=== PATIENT | male | born 1965 | race Caucasian/White ===

== ENCOUNTER 2020-06-30 11:56 | Emergency (ER) | payer OTHER, SELFPAY ==
--- NOTE | ~2020-06-30 | XR_ITS ---
EXAMINATION: XR CHEST CLINICAL INFORMATION: Palpitations COMPARISON: None TECHNIQUE: Frontal view of the chest was obtained. FINDINGS: The cardiac and mediastinal contours are normal. The lungs are clear. There is no pleural effusion or pneumothorax. Visualized bony structures are unremarkable. There may be degenerative changes of the spine. XR/XR chest 1V IMPRESSION: No evidence for acute disease in the chest.
[2020-06-30 12:11] VITALS: BP 172/91; PULSE 109; TEMP 37.3; O2SAT 96; BMI 39.9
--- NOTE | 2020-06-30 12:37 | ECG_ITS ---
Test Reason : TACHY Blood Pressure : / mmHG Vent. Rate : 109 BPM Atrial Rate : 109 BPM P-R Int : 160 ms QRS Dur : 084 ms QT Int : 370 ms P-R-T Axes : 037 -04 026 degrees QTc Int : 498 ms Sinus tachycardia Possible Left atrial enlargement Borderline ECG No previous ECGs available Referred By: Nela Scanlon Electronically Signed By:Reinaldo Kitchen
--- NOTE | 2020-06-30 12:39 | ED.ARRPALP ---
HPI - Arrhythmia/Palpitations General Chief Complaint: Arrhythmia/Palpitations Stated Complaint: hbp? Time Seen by Provider: 06/30/20 12:28 Source: patient Mode of arrival: ambulatory History of Present Illness HPI narrative: 55-year-old male with a past medical history of HTN, sinusitis, panic attacks presenting to the ED complaining of sudden onset palpitations while at work today. States checked his blood pressure which was elevated. Admits to similar symptoms with prior panic attacks which he is Rx Ativan but did not take today because he was at work. Admits to increase stressors, and generalized fatigue. States his father is in the hospital right now. Denies fever, chills, cough, shortness of breath, chest pain, LE edema, recent travel, nausea/vomiting MD complaint: heart racing and palpitations Related Data Previous Rx's Medication Instructions Recorded hydrochlorothiazide 12.5 mg tablet 12.5 mg PO QAM 90 Days #90 tab 03/07/20 loratadine 10 mg tablet 10 mg PO DAILY 30 Days #30 tab 06/20/20 lorazepam 0.5 mg tablet 0.5 mg PO DAILY PRN 7 Days #7 tab 06/20/20 azithromycin 250 mg tablet See Rx Instructions PO .COMPLEX 5 06/21/20 Days #6 tab Allergies Allergy/AdvReac Type Severity Reaction Status Date / Time amoxicillin [From AUGMENTIN] Allergy Unknown RASH Verified 06/20/20 15:48 clavulanic acid Allergy Unknown RASH Verified 06/20/20 15:48 [From AUGMENTIN] Review of Systems Review of Systems: Constitutional: No Weight loss, No Fever, No Chills, +Fatigue, No Malaise Cardiovascular: No Chest Pain, No SOB, No Edema, +Palpitations Respiratory: No Cough, No Sputum, No Dyspnea Gastrointestinal: No Nausea, No Vomiting, No Diarrhea, No Constipation, No Abdominal pain Genitourinary: No irregular bleeding, No Dysuria, No Urinary Frequency, No Hematuria Musculoskeletal: No joint pain, No Myalgias Skin: No Skin Lesions, No rash Neuro: No Weakness, No Headache Psych: + Anxiety/Panic Yes all other systems are reviewed and are negative [facility] Past Medical History Attestation statement: The following information was validated with the patient. Surgical History No pertinent past surgical history Social History Social History Alcohol intake: never Smoking Status: Former smoker Tobacco Type: Cigarette Advance Directives: No Advance Directives Information Provided: Yes Physical Exam Vital Signs: Vital Signs: Last Vital Signs Temp 99.2 F 06/30/20 12:11 Pulse 88 06/30/20 14:39 Resp 18 06/30/20 14:39 BP 116/73 06/30/20 14:39 Pulse Ox 96 06/30/20 12:11 Body Mass Index 39.9 Const: Other: tearful General: cooperative, healthy appearing and anxious Orientation/consciousness: patient oriented x3 Limitations: no limitations HENMT: Head: Yes normal to inspection Ears: hearing grossly normal bilaterally General nose exam: Normal external nose present Face and sinus: Yes normal facial exam Eyes: General: appearance normal, both eyes and all related structures EOM: EOMs intact bilaterally Neck: Neck: Yes normal visual inspection Resp: Effort & Inspection: normal respiratory effort Auscultation: clear to auscultation bilaterally, no rales, no rhonchi and no wheezes Cardio: Rate: regular rate and tachycardic Heart sounds: S1 normal heart sound present and S2 normal heart sound present GI: Inspection: Yes normal to inspection Palpation (GI): Soft to palpation, nontender, no guarding and not rigid Skin: Rashes: no rashes Wounds: no wounds Neuro: General: patient oriented x3 Gait exam (Neuro): Normal gait present Extrem: General: Yes normal to inspection and Yes no pedal edema Psych: Affect: Sad affect present Course Course Course Narrative: -labs unremakrable including troponin and TSH. -COVID 19 negative XR chest 1V IMPRESSION: No evidence for acute disease in the chest. --1414-- on re-evaluation pt reports sx improvement, will obtain repeat troponin -1634-- repeat troponin negative. results discussed with patiebt including worrisome signs and symptoms and strict return precautions. Patient states he has follow-up with his PCP next week. He verbalized understanding feel safe for discharge home MDM - Arrhythmia/Palpitations MDM Narrative Medical decision making narrative: 55-year-old male with a past medical history of HTN, sinusitis, panic attacks presenting to the ED complaining of sudden onset palpitations while at work today. Admits to increase stressors, and generalized fatigue. On exam HTNsive, tachycardiac, anxious, tearful, NAD, lungs CTA. Concern for anxiety/panic attack. Unlikely ACS or PE. Unlikely dissection, sepsis or infectious etiology Plan: EKG, Labs, CXR, COVID testing Differential Diagnosis Differential diagnosis: Likely palpitations, anxiety and sinus tachycardia; Unlikely artial fibrillation and artial flutter Medical Records Attestation: I reviewed the patient's medical records. Lab Data Attestation: I reviewed the patient's lab results. Result diagrams: 06/30/20 12:42 06/30/20 12:42 Labs: Lab Results 06/30/20 06/30/20 06/30/20 Range/Units 12:42 12:42 12:42 WBC 8.7 (4.8-10.8) X10*3/uL RBC 5.07 (4.60-5.80) X10*6/uL Hgb 16.3 (14.0-18.0) g/dl Hct 47.3 (42-52) % MCV 93.3 (80-98) fL MCH 32.1 (27.0-33.0) pg MCHC 34.5 (31.0-36.0) g/dl RDW 12.2 (11.0-16.0) % Plt Count 295 (160-400) X10*3/uL MPV 9.2 L (9.4-12.4) fL Immature Gran % (Auto) 0.1 (0.0-0.4) % Neut % (Auto) 62.4 (45-73) % Lymph % (Auto) 26.4 (20-40) % [place] % (Auto) 9.2 (2-11) % Eos % (Auto) 1.2 (0-4) % Baso % (Auto) 0.7 (0-2) % Lymph # (Auto) 2.3 (1.2-4.9) X10*3/uL [place] # (Auto) 0.8 (0.1-1.2) X10*3/uL Eos # (Auto) 0.1 (0.0-0.4) X10*3/uL Baso # (Auto) 0.1 (0.0-0.2) X10*3/uL Abs Immat Gran (auto) 0.01 (0.00-0.03) X10*3/uL Absolute Neuts (auto) 5.4 (2.0-8.3) X10*3/uL Absolute Nucleated RBC 0.000 (0.0-0.012) X10*3/uL Nucleated RBC % (auto) 0.0 (0.0-0.2) /100WBC Hold Blue Top SEE NOTE Sodium 139 (135-145) mmol/L Potassium 4.0 (3.3-5.1) mmol/L Chloride 102 (96-108) mmol/L Carbon Dioxide 26 (22-29) mmol/L Anion Gap 15 (12-20) BUN 15 (9-16) mg/dL Creatinine 0.85 (0.5-1.4) mg/dL Estim Creat Clear Calc 134.8 Estimated GFR > 60 Random Glucose 107 (60-115) mg/dL Calcium 9.9 (8.4-10.2) mg/dL Magnesium 2.2 (1.6-2.6) mg/dL Total Bilirubin 0.7 (0.0-1.0) mg/dL Direct Bilirubin 0.2 (0.0-0.5) mg/dL AST 23 (5-37) U/L ALT 41 H (0-40) U/L Alkaline Phosphatase 63 (39-117) U/L Troponin I High Sens (<3.5-35.0) ng/L Total Protein 8.4 H (6.5-8.0) g/dL Albumin 4.8 (3.5-5.0) g/dL TSH 1.19 (0.32-4.0) uIU/mL COVID-19 (KEEGAN) (Negative) COVID-19 Clin Com 06/30/20 06/30/20 06/30/20 Range/Units 12:42 12:42 15:42 WBC (4.8-10.8) X10*3/uL RBC (4.60-5.80) X10*6/uL Hgb (14.0-18.0) g/dl Hct (42-52) % MCV (80-98) fL MCH (27.0-33.0) pg MCHC (31.0-36.0) g/dl RDW (11.0-16.0) % Plt Count (160-400) X10*3/uL MPV (9.4-12.4) fL Immature Gran % (Auto) (0.0-0.4) % Neut % (Auto) (45-73) % Lymph % (Auto) (20-40) % [place] % (Auto) (2-11) % Eos % (Auto) (0-4) % Baso % (Auto) (0-2) % Lymph # (Auto) (1.2-4.9) X10*3/uL [place] # (Auto) (0.1-1.2) X10*3/uL Eos # (Auto) (0.0-0.4) X10*3/uL Baso # (Auto) (0.0-0.2) X10*3/uL Abs Immat Gran (auto) (0.00-0.03) X10*3/uL Absolute Neuts (auto) (2.0-8.3) X10*3/uL Absolute Nucleated RBC (0.0-0.012) X10*3/uL Nucleated RBC % (auto) (0.0-0.2) /100WBC Hold Blue Top Sodium (135-145) mmol/L Potassium (3.3-5.1) mmol/L Chloride (96-108) mmol/L Carbon Dioxide (22-29) mmol/L Anion Gap (12-20) BUN (9-16) mg/dL Creatinine (0.5-1.4) mg/dL Estim Creat Clear Calc Estimated GFR Random Glucose (60-115) mg/dL Calcium (8.4-10.2) mg/dL Magnesium (1.6-2.6) mg/dL Total Bilirubin (0.0-1.0) mg/dL Direct Bilirubin (0.0-0.5) mg/dL AST (5-37) U/L ALT (0-40) U/L Alkaline Phosphatase (39-117) U/L Troponin I High Sens < 3.5 < 3.5 (<3.5-35.0) ng/L Total Protein (6.5-8.0) g/dL Albumin (3.5-5.0) g/dL TSH (0.32-4.0) uIU/mL COVID-19 (KEEGAN) Negative (Negative) COVID-19 Clin Com See Note ECG Data Attestation: I personally reviewed and interpreted this ECG as follows: ECG interpretation date: 06/30/20 ECG interpretation time: 12:24 Interpretation: sinus tachycardia, rate 109, QTc 498. No STEMI. Nonischemic Discharge Plan Discharge Clinical Impression: Anxiety Patient Disposition: Home, Self-Care Instructions: Anxiety (ED) Additional Instructions: Your blood work, chest x-ray, and COVID-19 were reassuring today in the ED It is important that he follow up with her primary care doctor as scheduled next week Continue taking home prescribed medications If her symptoms persist or worsen, become constant, you develop any chest pain, shortness of breath, or fever return to the ED Prescriptions: No Action hydrochlorothiazide 12.5 mg tablet 12.5 mg PO QAM 90 Days Qty: 90 RF: 1 loratadine 10 mg tablet 10 mg PO DAILY 30 Days Qty: 30 RF: 0 lorazepam 0.5 mg tablet 0.5 mg PO DAILY PRN (Reason: anxiety) 7 Days Qty: 7 RF: 0 azithromycin 250 mg tablet See Rx Instructions PO .COMPLEX 5 Days Qty: 6 RF: 0 Referrals: Hernán Perkins PA-C [Primary Care Provider] - 5 days
[2020-06-30 12:49] LABS: MANUAL DIFF FLAG NO
[2020-06-30] MEDS: 0.9 % Sodium Chloride 1,000 ML 999 ML IVCONT (12:51)
[2020-06-30] MEDS: LORazepam 1 MG TABLET PO (12:51)
[2020-06-30] MEDS: Acetaminophen 325 MG TABLET 650 MG PO (12:51)
[2020-06-30 12:53] LABS: Basophils Absolute Auto 0.1 X10*3/uL (0.0-0.2); Basophils Percent Auto 0.7 % (0-2); Eosinophils Absolute Auto 0.1 X10*3/uL (0.0-0.4); Eosinophils Percent Auto 1.2 % (0-4); Hematocrit 47.3 % (42-52); Hemoglobin 16.3 g/dl (14.0-18.0); Imm Gran Abs Auto 0.01 X10*3/uL (0.00-0.03); Imm Gran Pct Auto 0.1 % (0.0-0.4); Lymphocytes Absolute Auto 2.3 X10*3/uL (1.2-4.9); Lymphocytes Percent Auto 26.4 % (20-40); Mean Corpuscular HGB Conc 34.5 g/dl (31.0-36.0); Mean Corpuscular Hemoglobin 32.1 pg (27.0-33.0); Mean Corpuscular Volume 93.3 fL (80-98); Mean Platelet Volume 9.2 fL (9.4-12.4); Monocytes Absolute Auto 0.8 X10*3/uL (0.1-1.2); Monocytes Percent Auto 9.2 % (2-11); Neutrophils Absolute Auto 5.4 X10*3/uL (2.0-8.3); Neutrophils Percent Auto 62.4 % (45-73); Platelet Count 295 X10*3/uL (160-400); Red Blood Count 5.07 X10*6/uL (4.60-5.80); Red Cell Distribution Width 12.2 % (11.0-16.0); White Blood Count 8.7 X10*3/uL (4.8-10.8)
[2020-06-30 13:15] LABS: COVID-19 Test Negative (Negative); IDNOW Serial# 9DD0AD1C
[2020-06-30 13:23] LABS: Alanine Aminotransferase 41 U/L (0-40); Albumin Level 4.8 g/dL (3.5-5.0); Alkaline Phosphatase 63 U/L (39-117); Anion Gap 15 (12-20); Aspartate Amino Transferase 23 U/L (5-37); Bilirubin Direct 0.2 mg/dL (0.0-0.5); Bilirubin Total 0.7 mg/dL (0.0-1.0); Blood Urea Nitrogen 15 mg/dL (9-16); Calcium 9.9 mg/dL (8.4-10.2); Carbon Dioxide 26 mmol/L (22-29); Chloride 102 mmol/L (96-108); Creatinine Clr Calc Pharmacy 134.8; Estimated Glomerular Filt Rate > 60; Glucose Random 107 mg/dL (60-115); Magnesium 2.2 mg/dL (1.6-2.6); Sodium 139 mmol/L (135-145); Total Protein 8.4 g/dL (6.5-8.0)
[2020-06-30 13:27] LABS: Troponin-I High Sensitivity < 3.5 ng/L (<3.5-35.0)
[2020-06-30 13:44] LABS: TSH reflex Free T4 1.19 uIU/mL (0.32-4.0)
[2020-06-30 14:39] VITALS: BP 116/73; PULSE 88; RESP 18
[2020-06-30 16:30] LABS: Troponin-I High Sensitivity < 3.5 ng/L (<3.5-35.0)
== END 2020-06-30 16:54 | disposition home or self-care (01) ==
PROVIDERS: Physician Assistant; Emergency Provider Emergency Medicine; PCP Physician Assistant
DX: R00.2 Palpitations (principal); F41.1 Generalized anxiety disorder; F43.0 Acute stress reaction; Z20.822 Contact with and (suspected) exposure to COVID-19; Z87.891 Personal history of nicotine dependence; Z79.899 Other long term (current) drug therapy
CPT/HCPCS: 36415; 71045; 80048; 80076; 83735; 84443; 84484; 85025; 87635; 93005; 96360; 99284

== ENCOUNTER 2020-07-06 07:00 | Outpatient (REF) | payer OTHER, SELFPAY ==
[2020-07-06 11:14] LABS: MANUAL DIFF FLAG NO
[2020-07-06 11:21] LABS: Basophils Absolute Auto 0.1 X10*3/uL (0.0-0.2); Eosinophils Absolute Auto 0.1 X10*3/uL (0.0-0.4); Hematocrit 46.6 % (42-52); Hemoglobin 15.8 g/dl (14.0-18.0); Imm Gran Abs Auto 0.01 X10*3/uL (0.00-0.03); Imm Gran Pct Auto 0.1 % (0.0-0.4); Lymphocytes Percent Auto 28.4 % (20-40); Mean Corpuscular HGB Conc 33.9 g/dl (31.0-36.0); Mean Corpuscular Hemoglobin 32.4 pg (27.0-33.0); Mean Corpuscular Volume 95.7 fL (80-98); Mean Platelet Volume 9.8 fL (9.4-12.4); Monocytes Absolute Auto 0.7 X10*3/uL (0.1-1.2); Monocytes Percent Auto 10.2 % (2-11); Neutrophils Absolute Auto 4.1 X10*3/uL (2.0-8.3); Neutrophils Percent Auto 58.3 % (45-73); Platelet Count 280 X10*3/uL (160-400); Red Blood Count 4.87 X10*6/uL (4.60-5.80); Red Cell Distribution Width 12.3 % (11.0-16.0)
[2020-07-06 11:49] LABS: Alanine Aminotransferase 39 U/L (0-40); Albumin Level 4.5 g/dL (3.5-5.0); Alkaline Phosphatase 60 U/L (39-117); Anion Gap 14 (12-20); Aspartate Amino Transferase 23 U/L (5-37); Bilirubin Total 0.8 mg/dL (0.0-1.0); Blood Urea Nitrogen 14 mg/dL (9-16); Calcium 9.5 mg/dL (8.4-10.2); Carbon Dioxide 27 mmol/L (22-29); Chloride 101 mmol/L (96-108); Cholesterol 212 mg/dL; Estimated Glomerular Filt Rate > 60; Glucose Fasting 127 mg/dL (60-99); HDL Cholesterol 38 mg/dL; LDL Cholesterol Calculated 149 mg/dl; Potassium 4.2 mmol/L (3.3-5.1); Sodium 138 mmol/L (135-145); Total Protein 7.7 g/dL (6.5-8.0); Triglycerides 126 mg/dL
[2020-07-06 12:00] LABS: Prostate Specific Antigen Scr 0.69 ng/mL (<0.05-4.0); TSH reflex Free T4 1.04 uIU/mL (0.32-4.0)
[2020-07-06 12:25] LABS: Microalbumin Urine < 5.0 mg/L
== END 2020-07-06 07:01 | disposition home or self-care (01) ==
LOC: HO.HMGCLDS 07:00
PROVIDERS: PCP Physician Assistant; Visit Provider Physician Assistant
DX: I10 Essential (primary) hypertension (principal); Z12.5 Encounter for screening for malignant neoplasm of prostate
CPT/HCPCS: 36415; 80053; 80061; 82043; 84153; 84443; 85025

== ENCOUNTER 2021-04-27 13:23 | Outpatient (REF) | payer OTHER, SELFPAY ==
[2021-04-27 14:23] LABS: Hematocrit 43.7 % (42.0-52.0); Mean Corpuscular HGB Conc 34.3 g/dl (31.0-36.0); Mean Corpuscular Hemoglobin 32.4 pg (27.0-33.0); Mean Corpuscular Volume 94.4 fL (80.0-98.0); Mean Platelet Volume 9.2 fL (9.4-12.4); Platelet Count 257 X10*3/uL (160-400); Red Blood Count 4.63 X10*6/uL (4.60-5.80); Red Cell Distribution Width 12.6 % (11.0-16.0); White Blood Count 9.5 X10*3/uL (4.8-10.8)
[2021-04-27 14:34] LABS: Estimated Average Glucose 117 mg/dL; Hemoglobin A1c % 5.7 %
[2021-04-27 14:55] LABS: Alanine Aminotransferase 23 U/L (0-40); Albumin Level 4.5 g/dL (3.5-5.0); Alkaline Phosphatase 64 U/L (39-117); Anion Gap 11 (12-20); Aspartate Amino Transferase 19 U/L (5-37); Bilirubin Total 0.7 mg/dL (0.0-1.0); Blood Urea Nitrogen 13 mg/dL (9-16); Calcium 9.5 mg/dL (8.4-10.2); Carbon Dioxide 27 mmol/L (22-29); Chloride 100 mmol/L (96-108); Cholesterol 181 mg/dL; Estimated Glomerular Filt Rate > 60; Glucose Fasting 77 mg/dL (60-99); HDL Cholesterol 40 mg/dL; LDL Cholesterol Calculated 128 mg/dl; Potassium 4.3 mmol/L (3.3-5.1); Sodium 134 mmol/L (135-145); Total Protein 7.5 g/dL (6.5-8.0); Triglycerides 68 mg/dL
[2021-04-27 15:14] LABS: TSH reflex Free T4 1.62 uIU/mL (0.32-4.0)
[2021-04-27 17:11] LABS: Creatinine Urine 64.75 mg/dL; Microalbumin Urine < 5.0 mg/L
== END 2021-04-27 13:24 | disposition home or self-care (01) ==
LOC: HO.HMGCLDS 13:23
PROVIDERS: PCP Physician Assistant; Visit Provider Physician Assistant
DX: I10 Essential (primary) hypertension (principal); R73.09 Other abnormal glucose
CPT/HCPCS: 36415; 80053; 80061; 82043; 83036; 84443; 85027

== ENCOUNTER 2021-07-13 14:06 | Outpatient (REF) | payer OTHER, SELFPAY ==
[2021-07-13 16:26] LABS: Hemoglobin 14.4 g/dl (14.0-18.0); Mean Corpuscular HGB Conc 34.3 g/dl (31.0-36.0); Mean Corpuscular Hemoglobin 31.9 pg (27.0-33.0); Mean Corpuscular Volume 93.1 fL (80.0-98.0); Mean Platelet Volume 9.5 fL (9.4-12.4); Platelet Count 261 X10*3/uL (160-400); Red Blood Count 4.51 X10*6/uL (4.60-5.80); Red Cell Distribution Width 12.1 % (11.0-16.0); White Blood Count 8.1 X10*3/uL (4.8-10.8)
[2021-07-13 16:29] LABS: Estimated Average Glucose 117 mg/dL; Hemoglobin A1C 150.6566 umol/L; Hemoglobin A1c % 5.7 %
[2021-07-13 16:30] LABS: Alanine Aminotransferase 18 U/L (0-40); Albumin Level 4.3 g/dL (3.5-5.0); Alkaline Phosphatase 61 U/L (39-117); Anion Gap 11 (12-20); Aspartate Amino Transferase 19 U/L (5-37); Bilirubin Total 0.6 mg/dL (0.0-1.0); Blood Urea Nitrogen 13 mg/dL (9-16); Calcium 9.4 mg/dL (8.4-10.2); Carbon Dioxide 26 mmol/L (22-29); Chloride 99 mmol/L (96-108); Cholesterol 159 mg/dL; Estimated Glomerular Filt Rate > 60; Glucose Fasting 78 mg/dL (60-99); HDL Cholesterol 39 mg/dL; LDL Cholesterol Calculated 109 mg/dl; Potassium 4.1 mmol/L (3.3-5.1); Sodium 132 mmol/L (135-145); Total Protein 7.4 g/dL (6.5-8.0); Triglycerides 58 mg/dL
[2021-07-13 16:34] LABS: Creatinine Urine 98.61 mg/dL; Microalbumin Urine < 5.0 mg/L
== END 2021-07-13 14:07 | disposition home or self-care (01) ==
LOC: HO.HMGCLDS 14:06
PROVIDERS: Visit Provider Physician Assistant
DX: I10 Essential (primary) hypertension (principal)
CPT/HCPCS: 36415; 80053; 80061; 82043; 83036; 84443; 85027

== ENCOUNTER 2022-07-17 14:07 | Outpatient (REF) | payer OTHER, SELFPAY ==
[2022-07-17 16:31] LABS: Hematocrit 42.4 % (42.0-52.0); Hemoglobin 14.8 g/dl (14.0-18.0); Mean Corpuscular HGB Conc 34.9 g/dl (31.0-36.0); Mean Corpuscular Hemoglobin 32.4 pg (27.0-33.0); Mean Corpuscular Volume 92.8 fL (80.0-98.0); Mean Platelet Volume 9.3 fL (9.4-12.4); Platelet Count 260 X10*3/uL (160-400); Red Blood Count 4.57 X10*6/uL (4.60-5.80); Red Cell Distribution Width 12.5 % (11.0-16.0); White Blood Count 8.7 X10*3/uL (4.8-10.8)
[2022-07-17 16:46] LABS: Estimated Average Glucose 126 mg/dL
[2022-07-17 17:05] LABS: Alanine Aminotransferase 20 U/L (0-40); Albumin Level 4.4 g/dL (3.5-5.0); Alkaline Phosphatase 64 U/L (39-117); Anion Gap 14 (12-20); Aspartate Amino Transferase 19 U/L (5-37); Bilirubin Total 0.8 mg/dL (0.0-1.0); Blood Urea Nitrogen 12 mg/dL (9-16); Calcium 9.4 mg/dL (8.4-10.2); Carbon Dioxide 26 mmol/L (22-29); Chloride 99 mmol/L (96-108); Cholesterol 195 mg/dL; Estimated Glomerular Filt Rate > 60; Glucose Fasting 77 mg/dL (60-99); HDL Cholesterol 37 mg/dL; Iron 115 mcg/dL (45-160); LDL Cholesterol Calculated 144 mg/dl; Percent Iron Saturation 38 % (15-50); Potassium 4.4 mmol/L (3.3-5.1); Sodium 135 mmol/L (135-145); Total Iron Binding Capacity 300 mcg/dL (228-428); Total Protein 7.3 g/dL (6.5-8.0); Triglycerides 74 mg/dL; Unsaturated Iron Binding 185 ug/dL
[2022-07-17 17:26] LABS: TSH reflex Free T4 1.79 uIU/mL (0.32-4.0)
== END 2022-07-17 14:08 | disposition home or self-care (01) ==
LOC: HO.HMGCLDS 14:07
PROVIDERS: PCP Physician Assistant; Visit Provider Physician Assistant
DX: Z12.5 Encounter for screening for malignant neoplasm of prostate (principal); R73.09 Other abnormal glucose; D50.9 Iron deficiency anemia, unspecified; I10 Essential (primary) hypertension
CPT/HCPCS: 36415; 80053; 80061; 83036; 83540; 84153; 84443; 85027

== ENCOUNTER 2023-07-18 12:33 | Outpatient (REF) | payer OTHER, SELFPAY ==
[2023-07-18 17:08] LABS: Hematocrit 42.4 % (42.0-52.0); Hemoglobin 14.6 g/dl (14.0-18.0); Mean Corpuscular HGB Conc 34.4 g/dl (31.0-36.0); Mean Corpuscular Hemoglobin 31.8 pg (27.0-33.0); Mean Corpuscular Volume 92.4 fL (80.0-98.0); Mean Platelet Volume 9.4 fL (9.4-12.4); Platelet Count 282 X10*3/uL (160-400); Red Blood Count 4.59 X10*6/uL (4.60-5.80); Red Cell Distribution Width 12.5 % (11.0-16.0); White Blood Count 8.7 X10*3/uL (4.8-10.8)
[2023-07-18 17:29] LABS: Alanine Aminotransferase 34 U/L (0-40); Albumin Level 4.3 g/dL (3.5-5.0); Alkaline Phosphatase 60 U/L (39-117); Anion Gap 14 (12-20); Aspartate Amino Transferase 25 U/L (5-37); Bilirubin Total 0.5 mg/dL (0.0-1.0); Blood Urea Nitrogen 16 mg/dL (9-16); Calcium 9.4 mg/dL (8.4-10.2); Carbon Dioxide 25 mmol/L (22-29); Chloride 99 mmol/L (96-108); Cholesterol 188 mg/dL (<200); Estimated Glomerular Filt Rate > 60; Glucose Fasting 83 mg/dL (60-99); HDL Cholesterol 38 mg/dL (>40); LDL Cholesterol Calculated 129 mg/dL (<100); Potassium 3.8 mmol/L (3.3-5.1); Sodium 134 mmol/L (135-145); Total Protein 7.9 g/dL (6.5-8.0); Triglycerides 107 mg/dL (<150)
[2023-07-18 17:39] LABS: Estimated Average Glucose 120 mg/dL; Hemoglobin A1C 148.8054 umol/L; Hemoglobin A1c % 5.8 % (<6.0)
[2023-07-18 17:43] LABS: Prostate Specific Antigen Scr 0.65 ng/mL (<0.05-4.0)
[2023-07-18 17:45] LABS: TSH reflex Free T4 1.63 uIU/mL (0.32-4.0)
[2023-07-18 17:53] LABS: Microalbumin Urine < 5.0 mg/L
== END 2023-07-18 12:34 | disposition home or self-care (01) ==
LOC: HO.HMGCLDS 12:33
PROVIDERS: PCP Physician Assistant; Visit Provider Physician Assistant
DX: Z12.5 Encounter for screening for malignant neoplasm of prostate (principal); I10 Essential (primary) hypertension; R73.09 Other abnormal glucose
CPT/HCPCS: 36415; 80053; 80061; 82043; 82570; 83036; 84153; 84443; 85027

== ENCOUNTER 2023-07-21 15:53 | Outpatient (AMB) | payer OTHER, SELFPAY ==
--- NOTE | 2023-07-21 15:54 | MHC.PC.OV ---
Vital Signs 07/21/23 15:56 Height 5 ft 11 in Weight 273 lb BMI 38.1 BP 128/78 Blood Pressure Location Lt brachial Position Sitting Pulse 74 Pulse Source Pulse Oximeter Pulse Oximetry (%) 97 Oxygen Delivery Method Room Air Intake Visit Reasons: PE Intake Note: Patient is here today for a physical. Private Banker Required: No Trumpet Player: Not Required per policy Accompanied by: Self / Same As Patient Allergies amoxicillin [From AUGMENTIN] Allergy (Unknown, Verified 07/21/23 16:05) RASH clavulanic acid [From AUGMENTIN] Allergy (Unknown, Verified 07/21/23 16:05) RASH loratadine Adverse Reaction (Mild, Verified 07/21/23 16:05) Jiddery Medication List - Last Reconciled 07/21/23 by Hernán Perkins PA-C hydrochlorothiazide 12.5 mg PO DAILY Tobacco use date assessed: 07/21/23 Dental Screening Dental Screen Date: 07/21/23 Did you have a dental visit in the last 12 months?: Yes Did you have a dental problem in the last 6 months where you did not have access to dental care?: No Was dental information given to patient?: Patient has dentist HPI PE HPI Details Patient is a 58-year-old male here today for annual physical.? Patient has a past history significant for impaired glucose metabolism and diet disorder, hypertension obesity. Impaired fasting glucose:, Report he has Rosa phenomanaone (reports high blood sugars 1st thing in the morning). He does monitor his blood sugars with his own glucometer.? Most recent A1c at 5.8.? He will continue to work on lifestyle to reduce his blood sugars and weight. .. HTN: Blood pressure at home have been stable 120s to 130 systolic.? Today blood pressure in office acceptable. He takes hydrochlorothiazide regularly he does have leftover lisinopril which he takes on occasion if systolic blood pressures are above 130. He reports lisinopril makes him feel off . Patient denies any headaches, shortness of breath, palpitations or lower extremity edema. PLAN: Will supply patient with low-dose losartan to use along with his lisinopril for better blood pressure control. .. Obesity: He has gained weight since last office visit. He does attribute this to dietary indiscretion. He is now back on a low carbohydrate diet which she manages to lose weight on.. He does understand his BMI is over 30 and has gained weight since last office visit. .. OLIVIER: Has been controlled without any medication. .. Vaccine:? UTD COVID ( JandJ) , declines flu vaccine, ,need Shingrex (declines). .. Colonoscopy? gotten colon done 2018- polyps repeat 10 years, Labs:? All within normal limits except for low sodium likely secondary to combination use of? hydrochlorothiazide Laboratory Tests 07/17/22 07/18/23 14:12 12:37 RBC 4.57 L 4.59 L Hgb 14.8 14.6 Sodium 134 L Creatinine 0.74 Estimat Average Gl ucose 126 Hemoglobin A1c % 6.0 5.8 Cholesterol 195 188 LDL Cholesterol, C alc 144 129 H PSA Screen 0.60 0.65 TSH 1.63 PFSH Surgical History No pertinent past surgical history Family History Father Diabetes Valvular heart disease Mother No problems noted. Social History Housing: House Alcohol intake: never Patient Tobacco Use Status: Former Tobacco user Quit Date: 2004 e-Cigarette/Vaping Use: Never Used Second Hand Smoke Exposure: Yes Substance Use Type: Marijuana service: No Current occupational status: employed Current occupation: machinest Cognitive needs: No Hearing needs: No Vision needs: No Questionnaire PHQ-9 Over the last 2 weeks, how often have you been bothered by any of the following problems? 1. Little interest or pleasure in doing things: not at all 2. Feeling down, depressed, or hopeless: not at all 3. Trouble falling or staying asleep, or sleeping too much: not at all 4. Feeling tired or having little energy: not at all 5. Poor appetite or overeating: not at all 6. Feeling bad about yourself - or that you are a failure or have let yourself or your family down: not at all 7. Trouble concentrating on things, such as reading the newspaper or watching television: not at all 8. Moving or speaking so slowly that other people could have noticed. Or the opposite - being so fidgety or restless that you have been moving around a lot more than usual: not at all 9. Thoughts that you would be better off or of hurting yourself in some way: not at all Total score: 0 Depression Screening Interpretation: Negative Depression Screening Done: Yes 75345 - PHQ-9 Billing: Yes Source: Developed by Drs. Hernán Pérez, Joann Taylor, Bert Gloria and colleagues, with an educational aimee from [employer]. Thrive Questionnaire Date Thrive assessed: 07/21/23 I am a: Patient What is your living situation today?: I have a steady place to live Within the past 12 months, did the food you bought not last and you didn't have the money to get more?: Never true Within the past 12 months, did you worry whether your food would run out before you got money to buy more?: Never true Do you have trouble paying for medicines?: No Do you have trouble getting transportation to medical appointments?: No Do you have trouble paying your heating and electricity bill?: No Do you have trouble taking care of your child, family member or friend?: No Do you have trouble with day-to-day activities such as bathing, preparing meals, shopping, managing finances, etc.?: No Are you currently unemployed and looking for a job?: No Are you interested in more education?: No Currently or been in a relationship where the following occur: no concerns reported THRIVE Score: 0 AUDIT C Alcohol Use Questionnaire (AUDIT-C) 1. How often do you have a drink containing alcohol?: Never Total Score: 0 OLIVIER-7 AMB Questionnaire OLIVIER-7 Date OLIVIER - 7 assessed: 07/21/23 Feeling nervous, anxious, or on edge: 0 = Not at all Not being able to stop or control worryin = Not at all Worrying too much about different things: 0 = Not at all Trouble relaxin = Not at all Being so restless that it is hard to sit still: 0 = Not at all Becoming easily annoyed or irritable: 0 = Not at all Feeling afraid as if something awful might happen: 0 = Not at all Total OLIVIER-7 score (0-4 normal; 5-9 mild; 10-14 moderate; 15-21 severe): 0 Source: Developed by Drs. Hernán Pérez, Joann Taylor, Bert Gloria and colleagues, with an educational aimee from [employer]. OLIVIER-7 Assessment Billing OLIVIER-7 Assessment Tool: OLIVIER-7 Assessment 25095 Review of Systems Const Denies body aches, Denies chills, Denies excessive sweating, Denies fatigue, Denies fever(s) and Denies headache(s) Eyes Denies blurry vision ENT Denies dysphagia, Denies vertigo, Denies dizziness, Denies headache(s), Denies hearing loss and Denies tinnitus Card Denies chest pain, Denies chest pain with activity, Denies syncope, Denies irregular heart rhythm and Denies dyspnea Resp Denies chest congestion, Denies cough, Denies hemoptysis, Denies dyspnea and Denies wheezing GI Denies abdominal pain, Denies melena, Denies hematochezia, Denies coffee ground emesis, Denies dysphagia, Denies diarrhea, Denies nausea and Denies vomiting Denies difficulty urinating, Denies dysuria, Denies urinary frequency, Denies urinary hesitancy and Denies urinary urgency Musc Denies arthralgias, Denies limited range of motion, Denies muscle cramps and Denies muscle weakness Skin/Breast Denies rash and Denies skin ulcer Neuro Denies Abnormal speech present, Denies confusion, Denies vertigo, Denies dizziness, Denies syncope, Denies headache(s), Denies memory loss and Denies seizure-like activity Psych Denies anxiety, Denies confusion, Denies depression, Denies memory loss, Denies panic attacks and Denies paranoia Endo Denies excessive sweating, Denies fatigue, Denies flushing, Denies polydipsia and Denies polyuria Aller/Immun Denies wheezing Physical exam (Primary Care) Vital Signs: Last Vital Signs Pulse 74 07/21/23 15:56 BP 128/78 07/21/23 15:56 Pulse Ox 97 07/21/23 15:56 Oxygen Delivery Method Room Air 07/21/23 15:56 BMI result Body Mass Index 38.1 BMI Assessment/Plan discussion: High Tobacco/Smoking Status: Tobacco use Status Tobacco use date assessed 07/21/23 07/21/23 16:03 Patient Tobacco Use Status Former Tobacco user 07/21/23 16:03 e-Cigarette/Vaping Use Never Used 07/21/23 16:03 PHQ-9: PHQ-9 Score PHQ-9: Total score 0 07/21/23 16:09 Depression Screening Interpretation: Negative Thrive Assessment: Date of Thrive Assessment Date Thrive assessed 07/21/23 07/21/23 16:03 Currently or been in a relationship where the following occur: no concerns reported Const Other: Obese General: cooperative, comfortable, no acute distress, alert and awake; No confusion Orientation/consciousness: oriented to person, oriented to place, patient oriented x3 and No confusion HENMT Head: Yes normocephalic Ears: external ears normal and TM's normal bilaterally Face and sinus: No sinus tenderness Mouth: Normal oral and palatal mucosa present and tongue normal Teeth and gingiva: dentition normal and gingiva normal Throat: Yes posterior oropharynx normal, Yes tonsils normal and Yes uvula midline Eyes Conjunctivae: conjunctivae normal Sclerae: sclerae normal Pupils: Equal, round and reactive pupils present EOM: EOMs intact bilaterally Direct Ophthalmoscopy: No no photophobia Neck Neck: Yes no lymphadenopathy, No tender and Yes no JVD Thyroid: Thyroid normal Carotids: no bruits Chest Chest palpation & inspection: no tenderness Resp Effort & Inspection: normal respiratory effort, no audible wheezes, not labored and no stridor Auscultation: no crackles, no rales, no rhonchi and no wheezes Cardio Jugular venous distension: no JVD Rate: regular rate, not bradycardic and not tachycardic Rhythm: regular rhythm Bruits: no carotid bruits Peripheral pulses: Peripheral pulses 2+ throughout GI Inspection: Yes normal to inspection, No abdominal wall ecchymosis and No visible herniation Palpation (GI): Soft to palpation, nontender, no guarding, not rigid and No hepatosplenomegaly present Auscultation: normoactive bowel sounds General: Yes no CVA tenderness Back/Spine/Pelvis Back: no CVA tenderness and No back tenderness Cervical Spine: cervical ROM normal Thoracic/Lumbar Spine: thoracic and lumbar spine normal to inspection, straight leg raise negative bilaterally, No thoraco-lumbar ROM limited and No lumbar spinal tenderness Skin Lesions: no lesions Rashes: no rashes Wounds: no wounds Neuro General: oriented to person, oriented to place, patient oriented x3, CN's II-XI intact bilaterally and No confusion Cranial nerves: Yes Equal, round and reactive pupils present and Yes Normal accommodation reflex present Cognition (Neuro): normal cognition Speech: No Abnormal speech present Gait exam (Neuro): Normal gait present Motor exam (neuro): 5/5 motor strength present throughout Extrem Right upper extremity: full ROM; no cyanosis Left upper extremity: full ROM; no cyanosis Right lower extremity: no edema Left lower extremity: no edema Psych Appearance: grossly normal Mental Status: mental status grossly normal Affect: normal affect Attitude: cooperative Thought process: Normal thought process present Assessment and Plan Assessment & Plan (1) Annual physical exam: Code(s): Z00.00 - Encounter for general adult medical examination without abnormal findings (2) OLIVIER (generalized anxiety disorder): Code(s): F41.1 - Generalized anxiety disorder Plan: Patient's OLIVIER-7 score- 0. He reports things anxiety has been well controlled without medication at this time.. (3) HTN (hypertension): Code(s): I10 - Essential (primary) hypertension Qualifiers: Hypertension type: essential hypertension Qualified Code(s): I10 - Essential (primary) hypertension Plan: Patient's blood pressure elevated today in office. He reports home readings are 120s to 130 systolic. Otherwise patient asymptomatic without any headaches, chest discomfort or dizziness. Will supply patient with losartan to use to optimize his blood pressure control. Goal blood pressure to be below 140/90 consistently. (4) Impaired glucose metabolism: Code(s): R73.09 - Other abnormal glucose Plan: Patient's most recent fasting blood sugar and A1c slightly elevated. A1c has improved to 5.8. . He will continue working on lifestyle modifications to reduce his high carbohydrate content foods. Goal A1c to be below 6.0 (5) Obese: Code(s): E66.9 - Obesity, unspecified Qualifiers: Body mass index: BMI 35.0-35.9 Obesity classification: adult class 2 (BMI 35 - 39.9) Obesity type: due to excess calories Serious obesity comorbidity presence: without serious comorbidity Qualified Code(s): E66.09 - Other obesity due to excess calories; Z68.35 - Body mass index [BMI] 35.0-35.9, adult Plan: Has gained weight since last office visit. He does admit to dietary indiscretion. Now on a low carbohydrate diet and has been losing weight Again patient understands his BMI is over 30 will continue working on lifestyle modifications to reduce his weight. Orders: Orders Microalbumin, Random (w Creat) 07/21/23 I10 - Essential (primary) hypertension Comprehensive Spurger. Panel Fast 07/21/23 I10 - Essential (primary) hypertension Hemoglobin A1c 07/21/23 E11.9 - Type 2 diabetes mellitus without complications Prostate Specific Antigen Scr 07/21/23 E11.9 - Type 2 diabetes mellitus without complications, Z12.5 - Encounter for screening for malignant neoplasm of prostate Medications: New losartan 25 mg PO DAILY 90 days 90 tabs 1RF I10 - Essential (primary) hypertension Coding Level of Care Code Est Pt Prev Care 40-64y([id number]) Diagnoses Annual physical exam Z00.00 OLIVIER (generalized anxiety disorder) F41.1 Essential hypertension I10 Hypertension type: essential hypertension Impaired glucose metabolism R73.09 Class 2 obesity due to excess calories without serious comorbidity with body mass index (BMI) of 35.0 to 35.9 in adult E66.09; Z68.35 Body mass index: BMI 35.0-35.9 Obesity classification: adult class 2 (BMI 35 - 39.9) Obesity type: due to excess calories Serious obesity comorbidity presence: without serious comorbidity Additional Codes OLIVIER-7 Assessment Billing - OLIVIER-7 Assessment Tool: OLIVIER-7 Assessment [id number] ([id number])
[2023-07-21 15:56] VITALS: BP 128/78; PULSE 74; O2SAT 97; BMI 38.1
== END 2023-07-21 16:32 | disposition home or self-care (01) ==
PROVIDERS: Visit Provider Physician Assistant
DX: Z00.00 Encounter for general adult medical examination without abnormal findings (principal); F41.1 Generalized anxiety disorder; I10 Essential (primary) hypertension; R73.09 Other abnormal glucose; E66.09 Other obesity due to excess calories; Z68.35 Body mass index [BMI] 35.0-35.9, adult
CPT/HCPCS: 99396

== ENCOUNTER 2024-06-01 12:46 | Outpatient (AMB) | payer OTHER, SELFPAY ==
[2024-06-01 12:52] VITALS: BP 124/82; PULSE 96; O2SAT 95; BMI 40.2
--- NOTE | 2024-06-01 12:52 | A.OFFPC_ITS ---
Vital Signs 3 06/01/24 12:52 Height 5 ft 11 in Weight 288 lb 4 oz BMI 40.2 BP 124/82 Blood Pressure Location Lt brachial Position Sitting Pulse 96 Pulse Source Pulse Oximeter Pulse Oximetry (%) 95 Oxygen Delivery Method Room Air Intake Visit Reasons: small lump on the palm of my left hand Family Consultant Required: No Accompanied by: Self / Same As Patient Allergies amoxicillin [From AUGMENTIN] Allergy (Unknown, Verified 06/01/24 13:06) RASH clavulanic acid [From AUGMENTIN] Allergy (Unknown, Verified 06/01/24 13:06) RASH loratadine Adverse Reaction (Mild, Verified 06/01/24 13:06) [facility] Medication List - Last Reconciled 06/01/24 by Hernán Perkins PA-C lisinopril-hydrochlorothiazide 10-12.5 mg 1 tab PO DAILY 90 days Tobacco use date assessed: 06/01/24 Dental Screening Dental Screen Date: 06/01/24 Did you have a dental visit in the last 12 months?: Yes Did you have a dental problem in the last 6 months where you did not have access to dental care?: No Was dental information given to patient?: Patient has dentist HPI small lump on the palm of my left hand 2 HPI0 Details The patient is a 59-year-old male presenting with a hand lump and associated trigger finger symptoms, indicative of potential Dupuytren's Contracture. The patient first noticed a small lump on the hand at the end of December. The lump and associated symptoms have gradually worsened. He reports associated catching and pain in the hand, particularly upon waking in the morning or after engaging in activities requiring finger dexterity. The patient recalls no specific trauma, but mentions repetitive activities, such as fishing and playing guitar, exacerbate the symptoms. Historically, the patient underwent nerve reattachment surgery due to a work-related injury on the hand, but denies any current numbness or prior recurrence. He's concerned about the increase in size since its initial occurrence and desires to understand treatment options like possible injections. [facility] Surgical History No pertinent past surgical history Family History Father Diabetes Valvular heart disease Mother No problems noted. Social History Housing: House Alcohol intake: never Patient Tobacco Use Status: Former Tobacco user e-Cigarette/Vaping Use: Never Used Second Hand Smoke Exposure: Yes Substance Use Type: Marijuana service: No Current occupational status: employed Current occupation: machinest Cognitive needs: No Hearing needs: No Vision needs: No Questionnaire PHQ-9 Over the last 2 weeks, how often have you been bothered by any of the following problems? 1. Little interest or pleasure in doing things: not at all 2. Feeling down, depressed, or hopeless: not at all 3. Trouble falling or staying asleep, or sleeping too much: not at all 4. Feeling tired or having little energy: not at all 5. Poor appetite or overeating: not at all 6. Feeling bad about yourself - or that you are a failure or have let yourself or your family down: not at all 7. Trouble concentrating on things, such as reading the newspaper or watching television: not at all 8. Moving or speaking so slowly that other people could have noticed. Or the opposite - being so fidgety or restless that you have been moving around a lot more than usual: not at all 9. Thoughts that you would be better off or of hurting yourself in some way: not at all Total score: 0 Depression Screening Interpretation: Negative Depression Screening Done: Yes 37017 - PHQ-9 Billing: Yes Source: Developed by Drs. Hernán Pérez, Joann Taylor, Bert Gloria and colleagues, with an educational aimee from [employer]. Thrive Questionnaire Date Thrive assessed: 06/01/24 I am a: Patient What is your living situation today?: I have a steady place to live Within the past 12 months, did the food you bought not last and you didn't have the money to get more?: Never true Within the past 12 months, did you worry whether your food would run out before you got money to buy more?: Never true Do you have trouble paying for medicines?: No Do you have trouble getting transportation to medical appointments?: No Do you have trouble paying your heating and electricity bill?: No Do you have trouble taking care of your child, family member or friend?: No Do you have trouble with day-to-day activities such as bathing, preparing meals, shopping, managing finances, etc.?: No Are you currently unemployed and looking for a job?: No Are you interested in more education?: No Please select the resources that you would like help with: None Currently or been in a relationship where the following occur: No concerns reported THRIVE Score: 0 AUDIT C Alcohol Use Questionnaire (AUDIT-C) 1. How often do you have a drink containing alcohol?: Never 3. How often do you have six or more drinks on one occasion?: Never Total Score: 0 OLIVIER-7 AMB Questionnaire OLIVIER-7 Date OLIVIER - 7 assessed: 06/01/24 Feeling nervous, anxious, or on edge: 0 = Not at all Not being able to stop or control worryin = Not at all Worrying too much about different things: 0 = Not at all Trouble relaxin = Not at all Being so restless that it is hard to sit still: 0 = Not at all Becoming easily annoyed or irritable: 0 = Not at all Feeling afraid as if something awful might happen: 0 = Not at all Total OLIVIER-7 score (0-4 normal; 5-9 mild; 10-14 moderate; 15-21 severe): 0 Source: Developed by Drs. Hernán Pérez, Joann Taylor, Bert Gloria and colleagues, with an educational aimee from [employer]. OLIVIER-7 Assessment Billing OLIVIER-7 Assessment Tool: OLIVIER-7 Assessment 47093 Physical exam (Primary Care) Vital Signs: Last Vital Signs Pulse 96 06/01/24 12:52 BP 124/82 06/01/24 12:52 Pulse Ox 95 06/01/24 12:52 Oxygen Delivery Method Room Air 06/01/24 12:52 BMI result Body Mass Index 40.2 Tobacco/Smoking Status: Tobacco use Status Tobacco use date assessed 06/01/24 06/01/24 12:54 Patient Tobacco Use Status Former Tobacco user 06/01/24 12:54 e-Cigarette/Vaping Use Never Used 06/01/24 12:54 PHQ-9: PHQ-9 Score PHQ-9: Total score 0 06/01/24 12:54 Depression Screening Interpretation: Negative Thrive Assessment: Date of Thrive Assessment Date Thrive assessed 06/01/24 06/01/24 12:54 Currently or been in a relationship where the following occur: No concerns reported Extrem Hand/finger images: 2 1. FIBROUS PALPABLE TISSUE IN THE AREA OUTLINED, RING FINGER CATCHING WITH EXTENSION Coding Level of Care Code Est Pt Level 3 (11604) Diagnoses Dupuytren contracture of left hand M72.0 Additional Codes OLIVIER-7 Assessment Billing - OLIVIER-7 Assessment Tool: OLIVIER-7 Assessment 87417 ([id number]) PHQ-9 - 82418 - PHQ-9 Billing: Yes ([id number]) Assessment & Plan Assessment & Plan (1) Dupuytren contracture of left hand: Code(s): M72.0 - Palmar fascial fibromatosis [Dupuytren] Category: Medical Plan: Refer to hand surgeon, Dr. Quintana, for further assessment and potential treatment, such as a cortisone injection for Dupuytren's Contracture. I discussed with the patient that he appears to have Dupuytren's Contracture, a condition often associated with [place] ancestry, resulting in the formation of fibrous tissue under the skin on the palm. I explained that the condition could potentially be managed with surgical intervention or injections to ease symptoms and prevent further impairment. I assured the patient that the condition, while concerning, is generally not serious. We discussed his weight gain and diabetes risk due to family history Orders: Referrals 2 Orthopedics Referral M72.0 - Palmar fascial fibromatosis [Dupuytren]
== END 2024-06-01 13:22 | disposition home or self-care (01) ==
PROVIDERS: PCP Physician Assistant; Visit Provider Physician Assistant
DX: M72.0 Palmar fascial fibromatosis [Dupuytren] (principal)

== ENCOUNTER → 2024-06-01 12:46 | Outpatient (BNVA) | payer OTHER, SELFPAY | PROVIDERS: PCP Physician Assistant; Visit Provider Physician Assistant | DX: M72.0 Palmar fascial fibromatosis [Dupuytren] (principal) | CPT/HCPCS: 96127 ==

== ENCOUNTER 2024-07-20 14:19 | Outpatient (REF) | payer OTHER, SELFPAY ==
[2024-07-20 17:11] LABS: Estimated Average Glucose 126 mg/dL; Hemoglobin A1C 163.1728 umol/L; Total Hemoglobin (HGBA1C) 3842.1755 umol/L
[2024-07-20 17:16] LABS: Alanine Aminotransferase 45 U/L (0-40); Albumin Level 4.3 g/dL (3.5-5.0); Alkaline Phosphatase 64 U/L (39-117); Anion Gap 13 (12-20); Aspartate Amino Transferase 29 U/L (5-37); Bilirubin Total 0.5 mg/dL (0.0-1.0); Blood Urea Nitrogen 13 mg/dL (9-16); Calcium 9.4 mg/dL (8.4-10.2); Carbon Dioxide 25 mmol/L (22-29); Chloride 102 mmol/L (96-108); Estimated Glomerular Filt Rate > 60; Glucose Fasting 83 mg/dL (60-99); Potassium 3.6 mmol/L (3.3-5.1); Sodium 136 mmol/L (135-145); Total Protein 8.2 g/dL (6.5-8.0)
[2024-07-20 17:40] LABS: Prostate Specific Antigen Scr 0.67 ng/mL (<0.05-4.0)
[2024-07-20 17:42] LABS: Creatinine Urine 61.19 mg/dL; Microalbumin Urine < 5.0 mg/L
== END 2024-07-20 14:20 | disposition home or self-care (01) ==
LOC: HO.HMGCLDS 14:19
PROVIDERS: PCP Physician Assistant; Visit Provider Physician Assistant
DX: Z12.5 Encounter for screening for malignant neoplasm of prostate (principal); E11.9 Type 2 diabetes mellitus without complications; I10 Essential (primary) hypertension
CPT/HCPCS: 36415; 80053; 82043; 82570; 83036; 84153

== ENCOUNTER 2024-07-21 15:49 | Outpatient (AMB) | payer OTHER, SELFPAY ==
--- NOTE | 2024-07-21 15:51 | MHC.PC.OV ---
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 Accompanied by: Self / Same As Patient Allergies amoxicillin [From AUGMENTIN] Allergy (Unknown, Verified 07/21/24 16:04) RASH clavulanic acid [From AUGMENTIN] Allergy (Unknown, Verified 07/21/24 16:04) RASH loratadine Adverse Reaction (Mild, Verified 07/21/24 16:04) [facility] Medication List - Last Reconciled 07/21/24 by Hernán Perkins PA-C lisinopril-hydrochlorothiazide 10-12.5 mg 1 tab PO DAILY 90 days Tobacco use date assessed: 06/01/24 Dental Screening Dental Screen Date: 07/21/24 Did you have a dental visit in the last 12 months?: Yes Did you have a dental problem in the last 6 months where you did not have access to dental care?: No Was dental information given to patient?: Patient has dentist HPI Annual Exam HPI Details Patient is a 59-year-old male here today for annual physical.? Patient has a past history significant for impaired glucose metabolism and diet disorder, hypertension obesity. Impaired fasting glucose:, Report he has Rosa phenomanaone (reports high blood sugars 1st thing in the morning). He does monitor his blood sugars with his own glucometer.? Most recent A1c at 6.0.? He will continue to work on lifestyle to reduce his blood sugars and weight. .. HTN: Blood pressure at home have been stable 120s to 130 systolic.? Today blood pressure in office acceptable. . Patient denies any headaches, shortness of breath, palpitations or lower extremity edema. .. History of borderline high cholesterol: Has been working on low-cholesterol diet. He did have a borderline high cholesterol in 2020. Will continue to follow lipid panel .. Obesity: Has lost weight since last office visit. He is now back on a low carbohydrate diet which she manages to lose weight on.. He does understand his BMI is over 30 and has gained weight since last office visit. .. OLIVIER: Has been controlled without any medication. .. Vaccine:? UTD COVID ( MaydJ) , declines flu vaccine, ,need Shingrex (declines). .. Colonoscopy? gotten colon done 2018- polyps repeat 10 years, Laboratory Tests 07/18/23 07/20/24 07/20/24 12:37 14:22 14:30 Sodium 134 L 136 Fasting Glucose 83 Hemoglobin A1c % 5.8 6.0 ALT 34 45 H Cholesterol 188 LDL Cholesterol, C alc 129 H PSA Screen 0.67 Urine Microalbumin < 5.0 PFSH Surgical History No pertinent past surgical history Family History Father Diabetes Valvular heart disease Mother No problems noted. Social History Housing: House Alcohol intake: never Patient Tobacco Use Status: Former Tobacco user e-Cigarette/Vaping Use: Never Used Second Hand Smoke Exposure: Yes Substance Use Type: Marijuana service: No Current occupational status: employed Current occupation: machinest Current occupational exposures/hazards: No Cognitive needs: No Hearing needs: No Vision needs: No Questionnaire PHQ-9 Over the last 2 weeks, how often have you been bothered by any of the following problems? 1. Little interest or pleasure in doing things: not at all 2. Feeling down, depressed, or hopeless: not at all 3. Trouble falling or staying asleep, or sleeping too much: not at all 4. Feeling tired or having little energy: not at all 5. Poor appetite or overeating: not at all 6. Feeling bad about yourself - or that you are a failure or have let yourself or your family down: not at all 7. Trouble concentrating on things, such as reading the newspaper or watching television: not at all 8. Moving or speaking so slowly that other people could have noticed. Or the opposite - being so fidgety or restless that you have been moving around a lot more than usual: not at all 9. Thoughts that you would be better off or of hurting yourself in some way: not at all Total score: 0 Depression Screening Interpretation: Negative Depression Screening Done: Yes Source: Developed by Drs. Hernán L. Elisa, Bert Amaro and colleagues, with an educational aimee from [employer]. Thrive Questionnaire Date Thrive assessed: 07/21/24 I am a: Patient What is your living situation today?: I have a steady place to live Within the past 12 months, did the food you bought not last and you didn't have the money to get more?: Never true Within the past 12 months, did you worry whether your food would run out before you got money to buy more?: Never true Do you have trouble paying for medicines?: No Do you have trouble getting transportation to medical appointments?: No Do you have trouble paying your heating and electricity bill?: No Do you have trouble taking care of your child, family member or friend?: No Do you have trouble with day-to-day activities such as bathing, preparing meals, shopping, managing finances, etc.?: No Are you currently unemployed and looking for a job?: No Are you interested in more education?: No Please select the resources that you would like help with: None Currently or been in a relationship where the following occur: No concerns reported THRIVE Score: 0 AUDIT C Alcohol Use Questionnaire (AUDIT-C) 1. How often do you have a drink containing alcohol?: Never Total Score: 0 OLIVIER-7 AMB Questionnaire OLIVIER-7 Date OLIVIER - 7 assessed: 07/21/24 Feeling nervous, anxious, or on edge: 0 = Not at all Not being able to stop or control worryin = Not at all Worrying too much about different things: 0 = Not at all Trouble relaxin = Not at all Being so restless that it is hard to sit still: 0 = Not at all Becoming easily annoyed or irritable: 0 = Not at all Feeling afraid as if something awful might happen: 0 = Not at all Total OLIVIER-7 score (0-4 normal; 5-9 mild; 10-14 moderate; 15-21 severe): 0 Source: Developed by Drs. Hernán Pérez, Bert Amaro and colleagues, with an educational aimee from [employer]. Review of Systems Const Denies body aches, Denies chills, Denies excessive sweating, Denies fatigue, Denies fever(s) and Denies headache(s) Eyes Denies blurry vision ENT Denies dysphagia, Denies vertigo, Denies dizziness, Denies headache(s), Denies hearing loss and Denies tinnitus Card Denies chest pain, Denies chest pain with activity, Denies syncope, Denies irregular heart rhythm and Denies dyspnea Resp Denies chest congestion, Denies cough, Denies hemoptysis, Denies dyspnea and Denies wheezing GI Denies abdominal pain, Denies melena, Denies hematochezia, Denies coffee ground emesis, Denies dysphagia, Denies diarrhea, Denies nausea and Denies vomiting Denies difficulty urinating, Denies dysuria, Denies urinary frequency, Denies urinary hesitancy and Denies urinary urgency Musc Denies arthralgias, Denies limited range of motion, Denies muscle cramps and Denies muscle weakness Skin/Breast Denies rash and Denies skin ulcer Neuro Denies Abnormal speech present, Denies confusion, Denies vertigo, Denies dizziness, Denies syncope, Denies headache(s), Denies memory loss and Denies seizure-like activity Psych Denies anxiety, Denies confusion, Denies depression, Denies memory loss, Denies panic attacks and Denies paranoia Endo Denies excessive sweating, Denies fatigue, Denies flushing, Denies polydipsia and Denies polyuria Aller/Immun Denies wheezing Physical exam (Primary Care) Vital Signs: Last Vital Signs Pulse 89 07/21/24 15:52 BP 136/82 07/21/24 15:52 Pulse Ox 96 07/21/24 15:52 Oxygen Delivery Method Room Air 07/21/24 15:52 BMI result Body Mass Index 38.9 BMI Assessment/Plan discussion: High BMI High, discussed plan: lifestyle, weight reduction, dietary and physical activity Tobacco/Smoking Status: Tobacco use Status Tobacco use date assessed 06/01/24 07/21/24 15:55 Patient Tobacco Use Status Former Tobacco user 07/21/24 15:55 e-Cigarette/Vaping Use Never Used 07/21/24 15:55 PHQ-9: PHQ-9 Score PHQ-9: Total score 0 07/21/24 16:05 Depression Screening Interpretation: Negative Thrive Assessment: Date of Thrive Assessment Date Thrive assessed 07/21/24 07/21/24 15:55 Currently or been in a relationship where the following occur: No concerns reported Const General: cooperative, comfortable, no acute distress, alert and awake; No confusion Orientation/consciousness: oriented to person, oriented to place, patient oriented x3 and No confusion HENMT Head: Yes normocephalic Ears: external ears normal and TM's normal bilaterally Face and sinus: No sinus tenderness Mouth: Normal oral and palatal mucosa present and tongue normal Teeth and gingiva: dentition normal and gingiva normal Throat: Yes posterior oropharynx normal, Yes tonsils normal and Yes uvula midline Eyes Conjunctivae: conjunctivae normal Sclerae: sclerae normal Pupils: Equal, round and reactive pupils present EOM: EOMs intact bilaterally Direct Ophthalmoscopy: No no photophobia Neck Neck: Yes no lymphadenopathy, No tender and Yes no JVD Thyroid: Thyroid normal Carotids: no bruits Chest Chest palpation & inspection: no tenderness Resp Effort & Inspection: normal respiratory effort, no audible wheezes, not labored and no stridor Auscultation: no crackles, no rales, no rhonchi and no wheezes Cardio Jugular venous distension: no JVD Rate: regular rate, not bradycardic and not tachycardic Rhythm: regular rhythm Bruits: no carotid bruits Peripheral pulses: Peripheral pulses 2+ throughout GI Inspection: Yes normal to inspection, No abdominal wall ecchymosis and No visible herniation Palpation (GI): Soft to palpation, nontender, no guarding, not rigid and No hepatosplenomegaly present Auscultation: normoactive bowel sounds General: Yes no CVA tenderness Back/Spine/Pelvis Back: no CVA tenderness and No back tenderness Cervical Spine: cervical ROM normal Thoracic/Lumbar Spine: thoracic and lumbar spine normal to inspection, straight leg raise negative bilaterally, No thoraco-lumbar ROM limited and No lumbar spinal tenderness Skin Lesions: no lesions Rashes: no rashes Wounds: no wounds Neuro General: oriented to person, oriented to place, patient oriented x3, CN's II-XI intact bilaterally and No confusion Cranial nerves: Yes Equal, round and reactive pupils present and Yes Normal accommodation reflex present Cognition (Neuro): normal cognition Speech: No Abnormal speech present Gait exam (Neuro): Normal gait present Motor exam (neuro): 5/5 motor strength present throughout Extrem Right upper extremity: full ROM; no cyanosis Left upper extremity: full ROM; no cyanosis Right lower extremity: no edema Left lower extremity: no edema Psych Appearance: grossly normal Mental Status: mental status grossly normal Affect: normal affect Attitude: cooperative Thought process: Normal thought process present Coding Level of Care Code Est Pt Prev Care 40-64y(77863) Diagnoses Annual physical exam Z00.00 OLIVIER (generalized anxiety disorder) F41.1 Essential hypertension I10 Hypertension type: essential hypertension Borderline high cholesterol E78.9 Class 2 obesity E66.812 Assessment & Plan Assessment & Plan (1) Annual physical exam: Code(s): Z00.00 - Encounter for general adult medical examination without abnormal findings Category: Medical Plan: As per HPI (2) OLIVIER (generalized anxiety disorder): Code(s): F41.1 - Generalized anxiety disorder Category: Medical Plan: Patient's anxiety has been stable without medication. (3) HTN (hypertension): Code(s): I10 - Essential (primary) hypertension Category: Medical Qualifiers: Hypertension type: essential hypertension Qualified Code(s): I10 - Essential (primary) hypertension Plan: Patient's blood pressure acceptable today in office. Will continue current dose of lisinopril hydrochlorothiazide with goal blood pressure to be below 140/90 (4) Borderline high cholesterol: Code(s): E78.9 - Disorder of lipoprotein metabolism, unspecified Category: Medical Plan: Patient has a history of borderline high cholesterol. Will recheck lipid panel to ensure normal. He will continue with lifestyle and dietary modifications. Goal LDL to remain below 130 (5) Class 2 obesity: Code(s): E66.812 - Obesity, class 2 Category: Medical Plan: Patient does understand his BMI is over 30 will work on being more physically active and adapting to better eating habits to reduce his weight Orders: Orders Lipid Panel 07/21/24 E78.9 - Disorder of lipoprotein metabolism, unspecified Comprehensive [place]. Panel Fast 07/21/24 I10 - Essential (primary) hypertension Hemoglobin A1c 07/21/24 R73.09 - Other abnormal glucose Complete Blood Count no Diff 07/21/24 I10 - Essential (primary) hypertension Microalbumin, Random (w Creat) 07/21/24 I10 - Essential (primary) hypertension Prostate Specific Antigen Scr 07/21/24 I10 - Essential (primary) hypertension, Z12.5 - Encounter for screening for malignant neoplasm of prostate Patient Instructions: Goal: Blood pressure to remain below 140/90 Barriers: Adherence to physical activity and healthy eating habits
[2024-07-21 15:52] VITALS: BP 136/82; PULSE 89; O2SAT 96; BMI 38.9
== END 2024-07-21 16:44 | disposition home or self-care (01) ==
LOC: HO.HMCH 15:50
PROVIDERS: PCP Physician Assistant; Visit Provider Physician Assistant
DX: Z00.00 Encounter for general adult medical examination without abnormal findings (principal); F41.1 Generalized anxiety disorder; Z68.38 Body mass index [BMI] 38.0-38.9, adult; E66.812 Obesity, class 2; I10 Essential (primary) hypertension; E78.9 Disorder of lipoprotein metabolism, unspecified